=== PATIENT | male | born 1970 | race African-American/Black ===

== ENCOUNTER 2024-04-21 16:22 | Emergency (ER) | payer OTHER ==
[2024-04-21 16:31] VITALS: BP 167/86; PULSE 92; RESP 18; TEMP 98.1; BMI 37.8
== END 2024-04-21 17:50 | disposition home or self-care (01) ==
LOC: JERFT 16:22
DX: R07.89 Other chest pain (principal); V89.2XXA Person injured in unspecified motor-vehicle accident, traffic, initial encounter
CPT/HCPCS: 99283-25